=== PATIENT | male | born 1985 | race African-American/Black ===

== ENCOUNTER → 2016-04-27 | Outpatient (REF) | payer OTHER | LOC: M LAB REF 16:24 | PROVIDERS: ATTEND Physician Assistant | DX: Z11.3 Encounter for screening for infections with a predominantly sexual mode of transmission (principal) ==

== ENCOUNTER → 2018-09-11 | Outpatient (REF) | payer OTHER ==
[2018-09-11 23:27] LABS: CHLAMYDIA DNA AMPLIFICATION POSITIVE (NEGATIVE); GC DNA AMPLIFICATION NEGATIVE (NEGATIVE)
== END ==
LOC: M LAB REF 19:36
PROVIDERS: ATTEND Physician Assistant
DX: Z20.2 Contact with and (suspected) exposure to infections with a predominantly sexual mode of transmission (principal)

== ENCOUNTER 2019-10-22 22:10 | Emergency (ER) | payer SELFPAY ==
[~2019-10-22] VITALS: Ht 182.9 cm; Wt 101.7 kg
[2019-10-22 22:11] VITALS: BP 141/74
[2019-10-22] MEDS ORDERED: ACETAMINOPHEN TAB 650MG DOSE (2X325MG) PO ONE (22:45)
--- NOTE | 2019-10-23 08:08 | REP ---
REASON: Pain after trauma. FINDINGS: No acute fracture or destructive osseous lesion. Electronically Signed by Ender Copeland DO 10/23/2019 08:12 A
== END 2019-10-22 23:13 | disposition home or self-care (01) ==
LOC: M ED 22:10
DX: S60.022A Contusion of left index finger without damage to nail, initial encounter (principal); W23.0XXA Caught, crushed, jammed, or pinched between moving objects, initial encounter; Y92.9 Unspecified place or not applicable; Y93.9 Activity, unspecified; Y99.9 Unspecified external cause status

== ENCOUNTER → 2020-04-29 | Outpatient (CLI) | payer SELFPAY ==
--- NOTE | 2020-04-29 17:25 | REP ---
INDICATION: DYSPNEA, SEVERE PERSISTENT ASTHMA. COMPARISON: No comparison study. TECHNIQUE: Two views.. FINDINGS: The lungs are well inflated and free of infiltrate. The pleural angles are sharp. The heart size is normal. Pulmonary vasculature is not increased. No significant bony abnormality is seen. IMPRESSION: Negative chest x-ray. <Electronically signed by Shlomo Milner > 04/29/20 1411
== END ==
LOC: M WUC 14:57
PROVIDERS: ATTEND Physician Assistant
DX: R06.00 Dyspnea, unspecified (principal); J45.51 Severe persistent asthma with (acute) exacerbation

== ENCOUNTER → 2025-01-10 | Outpatient (RCR) | LOC: M EMPSSV 12-30 06:12 | PROVIDERS: ATTEND Family Medicine | DX: Z20.828 Contact with and (suspected) exposure to other viral communicable diseases (principal) ==